=== PATIENT | male | born 1985 | race African-American/Black ===

== ENCOUNTER 2017-03-31 22:49 | Emergency (ER) | payer OTHER, SELFPAY ==
[2017-03-31] MEDS ORDERED: Acetaminophen 500 MG TAB ONE (23:35)
== END 2017-04-01 00:01 | disposition home or self-care (01) ==
LOC: ERS 22:49
DX: Z00.00 Encounter for general adult medical examination without abnormal findings (principal)
CPT/HCPCS: 99282

== ENCOUNTER 2017-04-03 13:56 | Emergency (ER) | payer SELFPAY | END 2017-04-03 14:40 | disposition home or self-care (01) | LOC: ERS 13:56 | DX: S30.860A Insect bite (nonvenomous) of lower back and pelvis, initial encounter (principal); W57.XXXA Bitten or stung by nonvenomous insect and other nonvenomous arthropods, initial encounter | CPT/HCPCS: 99281 ==

== ENCOUNTER 2017-07-27 21:33 | Emergency (ER) | payer SELFPAY | END 2017-07-27 21:43 | disposition home or self-care (01) | LOC: ERS 21:33 | DX: Z02.89 Encounter for other administrative examinations (principal) | CPT/HCPCS: 99283 ==